=== PATIENT | male | born 1960 | race Caucasian/White ===

== ENCOUNTER 2018-04-23 10:59 | Inpatient (IN) | payer BC ==
[2018-04-23 12:16] LABS: Absolute Lymphocytes (CBC) 0.2 K/uL (0.7-4.9); Absolute Monocytes 0.3 K/uL (0.1-1.3); Absolute Neutrophil 2.9 K/uL (1.8-8.0); Basophils % 0.5 % (0-1.3); Eosinophils % 0.2 % (0-4.4); Hematocrit 20.9 % (39.6-49.0); Lymphocytes % 6.9 % (15.3-44.8); MCH 31.5 pg (27.0-35.0); MCV 91.7 fL (80-100); MPV 8.4 fL (7.6-11.3); Monocytes % 9.1 % (3.3-12.3); RBC Red Blood Cell Count 2.28 M/uL (4.33-5.43)
--- NOTE | 2018-04-23 12:27 | RAD REPORT ---
EXAM DESCRIPTION: CT - Head Brain Wo Cont - 04/23/2018 12:14 pm CLINICAL HISTORY: Syncope, history of head and neck cancer COMPARISON: None. TECHNIQUE: Axial 5 mm thick images of the head were obtained without IV contrast. All CT scans are performed using dose optimization technique as appropriate and may include automated exposure control or mA/KV adjustment according to patient size. FINDINGS: No intracranial hemorrhage, mass, edema or shift of mid-line structures. No acute infarcti on changes seen. No abnormal extra-axial fluid collections. Ventricles are normal. Mastoid air cells and visualized portions of the paranasal sinuses are clear. No acute bony findings. IMPRESSION: Negative non-contrast CT head examination.
[2018-04-23 12:31] LABS: Potassium 3.4 mmol/L (3.5-5.1)
--- NOTE | 2018-04-23 12:56 | RAD REPORT ---
EXAM DESCRIPTION: Josh Single View04/23/2018 12:38 pm CLINICAL HISTORY: Seizure COMPARISON: none FINDINGS: The lungs appear clear of acute infiltrate. The heart is normal size IMPRESSION: No acute abnormalities displayed
--- NOTE | 2018-04-23 14:26 | EDPHYS ---
Physician Documentation [facility] Name: Glenis Mix Age: 57 yrs Sex: Male : 1960 Arrival Date: 04/23/2018 Time: 11:04 Bed 28 Private MD: ED Physician Filiberto Masterson HPI: 04/23 17:46 This 57 yrs old Male presents to ER via EMS with complaints of syncope. gs 17:50 The patient has experienced syncope, became unresponsive, collapsed. Onset: The gs symptoms/episode began/occurred acutely, just prior to arrival. Duration: This was a single episode, that lasted 1 minute(s). Context: the episode(s) was witnessed, by a significant other, occurred at home, occurred while the patient was standing, walking. Associated injury: The patient did not suffer any apparent associated injury. Associated signs and symptoms: Pertinent positives: palpitation,lightheadness prodrome, Pertinent negatives: chest pain. Current symptoms: Currently, the patient is not experiencing any symptoms. The patient has experienced similar episodes in the past, a few times. Historical: - Allergies: 11:09 Iodine; sg - Home Meds: 11:09 Ativan Oral [Active]; Hydrocodone-Acetaminophen Oral [Active]; Fentanyl Patch Topical sg [Active]; - PMHx: 11:09 Anxiety; Esophageal Cancer; sg - Immunization history:: Adult Immunizations up to date. - Social history:: Smoking status: Patient/guardian denies using tobacco, the patient reports quitting approximately 5 years ago. - Ebola Screening: : Patient negative for fever greater than or equal to 101.5 degrees Fahrenheit, and additional compatible Ebola Virus Disease symptoms Patient denies exposure to infectious person Patient denies travel to an Ebola-affected area in the 21 days before illness onset No symptoms or risks identified at this time. ROS: 17:50 All other systems are negative. gs Exam: 17:50 Head/Face: Normocephalic, atraumatic. Eyes: Pupils equal round and reactive to light, gs extra-ocular motions intact. Lids and lashes normal. Conjunctiva and sclera are non-icteric and not injected. Cornea within normal limits. Periorbital areas with no swelling, redness, or edema. ENT: Nares patent. No nasal discharge, no septal abnormalities noted. Tympanic membranes are normal and external auditory canals are clear. Oropharynx with no redness, swelling, or masses, exudates, or evidence of obstruction, uvula midline. Mucous membranes moist. Neck: Trachea midline, no thyromegaly or masses palpated, and no cervical lymphadenopathy. Supple, full range of motion without nuchal rigidity, or vertebral point tenderness. No Meningismus. Chest/axilla: Normal chest wall appearance and motion. Nontender with no deformity. No lesions are appreciated. Cardiovascular: Regular rate and rhythm with a normal S1 and S2. No gallops, murmurs, or rubs. Normal PMI, no JVD. No pulse deficits. Respiratory: Lungs have equal breath sounds bilaterally, clear to auscultation and percussion. No rales, rhonchi or wheezes noted. No increased work of breathing, no retractions or nasal flaring. Abdomen/GI: Soft, non-tender, with normal bowel sounds. No distension or tympany. No guarding or rebound. No evidence of tenderness throughout. Back: No spinal tenderness. No costovertebral tenderness. Full range of motion. MS/ Extremity: Pulses equal, no cyanosis. Neurovascular intact. Full, normal range of motion. Neuro: Awake and alert, GCS 15, oriented to person, place, time, and situation. Cranial nerves II-XII grossly intact. Motor strength 5/5 in all extremities. Sensory grossly intact. Cerebellar exam normal. Normal gait. 17:50 Skin: Appearance: Color: pale. 17:56 ECG was reviewed by the Attending Physician. Vital Signs: 11:10 BP 108 / 54; Pulse 75; Resp 17 S; Temp 98.6; Pulse Ox 100% on R/A; Weight 74.84 kg; iw Height 5 ft. 10 in. (177.80 cm); Pain 4/10; 13:25 BP 100 / 66; Pulse 75; Resp 16; Pulse Ox 100% on R/A; Pain 0/10; iw 16:27 Pulse 76; Resp 18; Pulse Ox 100% on R/A; Pain 0/10; mg2 17:40 BP 120 / 78; Pulse 85; Resp 18; Temp 98.4; Pulse Ox 100% ; Pain 0/10; mg2 18:00 BP 124 / 79; Pulse 80; Resp 18; Pulse Ox 100% on R/A; Pain 0/10; mg2 11:10 Body Mass Index 23.67 (74.84 kg, 177.80 cm) iw 18:00 1800 mg2 [place] Coma Score: 16:57 Eye Response: spontaneous(4). Verbal Response: oriented(5). Motor Response: obeys mg2 commands(6). Total: 15. MDM: 11:34 Patient medically screened. gs 17:50 Differential Diagnosis: cardiac arrhythmia, cerebrovascular accident, seizure. Data gs reviewed: vital signs, nurses notes. Counseling: I had a detailed discussion with the patient and/or guardian regarding: the historical points, exam findings, and any diagnostic results supporting the discharge/admit diagnosis, the need for further work-up and treatment in the hospital. Response to treatment: the patient's symptoms have markedly improved after treatment. Physician consultation: A Carrie GILL and will see patient in inpatient room, also spoke with dr vance says leuk poor sufficient for transfusion. 04/23 11:48 Order name: Basic Metabolic Panel; Complete Time: 12:43 04/23 11:48 Order name: CBC with Diff; Complete Time: 12:43 04/23 11:48 Order name: Magnesium; Complete Time: 12:43 04/23 11:48 Order name: Troponin (emerg Dept Use Only); Complete Time: 12:43 04/23 14:14 Order name: Type And Screen 04/23 14:37 Order name: Bb Add On bd 04/23 14:40 Order name: Urine Dipstick--Ancillary (enter results) 04/23 14:44 Order name: Bb Add On bd 04/23 14:45 Order name: Basic Metabolic Panel EDPR 04/23 14:45 Order name: Basic Metabolic Panel [facility] 04/23 14:45 Order name: CBC with Automated Diff EDPR 04/23 14:45 Order name: CBC with Automated Diff EDPR 04/23 16:32 Order name: ABO/RH no charge EDPR 04/23 16:53 Order name: Glucose, Ancillary Testing EDPR 04/23 11:48 Order name: XRAY Chest (1 view); Complete Time: 13:02 04/23 11:48 Order name: EKG; Complete Time: 11:49 04/23 11:48 Order name: Cardiac monitoring; Complete Time: 12:00 04/23 11:48 Order name: EKG - Nurse/Tech; Complete Time: 12:00 04/23 11:48 Order name: IV Saline Lock; Complete Time: 12:00 04/23 11:48 Order name: Labs collected and sent; Complete Time: 12:00 04/23 11:48 Order name: O2 Per Protocol; Complete Time: 12:00 04/23 11:48 Order name: O2 Sat Monitoring; Complete Time: 12:00 04/23 11:48 Order name: Urine Dipstick-Ancillary (obtain specimen); Complete Time: 14:33 04/23 11:48 Order name: CT Head Brain wo Cont; Complete Time: 12:43 04/23 14:45 Order name: Heart Healthy EDPR EC:56 Rate is 78 beats/min. Rhythm is regular. MS interval is normal. QRS interval is normal. gs No Q waves. No ST changes noted. Clinical impression: Normal ECG. Interpreted by me. Administered Medications: 11:15 Drug: NS 0.9% 1000 ml Route: IV; Rate: 1 bolus; Site: right antecubital; iw 12:30 Follow up: Response: No adverse reaction; IV Status: Completed infusion mg2 Point of Care Testing: Blood Glucose: 11:14 Blood Glucose: 110 mg/dL; iw Ranges: Critical Glucose Levels:Adult <50 mg/dl or >400 mg/dl <40 mg/dl or >180 mg/dl Disposition: 04/23/18 14:25 Hospitalization ordered by Huyen Butler for Observation. Preliminary diagnosis are Syncope and collapse, Anemia in chronic diseases classified elsewhere. - Bed requested for Telemetry/MedSurg (observation). - Status is Observation. mg2 - Condition is Stable. - Problem is new. - Symptoms have improved. UTI on Admission? No Signatures: Dispatcher [employer] [facility] Lauri James RN RN Lisset Pitts RN RN Filiberto Masterson MD MD Ryan Robertson RN RN mg2 Corrections: (The following items were deleted from the chart) 16:45 14:25 Hospitalization Ordered by Jose Villatoro DO for Observation. Preliminary diagnosis is Syncope and collapse; Anemia in chronic diseases classified elsewhere. Bed requested for Telemetry/MedSurg (observation). Status is Observation. Condition is Stable. Problem is new. Symptoms have improved. UTI on Admission? No. gs 17:33 16:45 04/23/2018 14:25 Hospitalization Ordered by Jose Villatoro DO for Observation. gs Preliminary diagnosis is Syncope and collapse; Anemia in chronic diseases classified elsewhere. Bed requested for Telemetry/MedSurg (observation). Status is Observation. Condition is Stable. Problem is new. Symptoms have improved. UTI on Admission? No. iw 18:24 17:33 04/23/2018 14:25 Hospitalization Ordered by Huyen Butler MD for Observation. mg2 Preliminary diagnosis is Syncope and collapse; Anemia in chronic diseases classified elsewhere. Bed requested for Telemetry/MedSurg (observation). Status is Observation. Condition is Stable. Problem is new. Symptoms have improved. UTI on Admission? No. gs
--- NOTE | 2018-04-23 14:26 | ER ---
Nurse's Notes [facility] Name: Glenis Mix Age: 57 yrs Sex: Male : 1960 Arrival Date: 04/23/2018 Time: 11:04 Bed 28 Private MD: Diagnosis: Syncope and collapse;Anemia in chronic diseases classified elsewhere Presentation: 04/23 11:05 Presenting complaint: EMS states: pt being treated for throat cancer/tongue cancer, sg last chemo tx was last week, pt reports having been tired of sitting inside, went outside to mow the yard and felt weak and his heart racing, went inside where he thinks he passed out or had a seizure. Reported hx of seizures and anxiety but not treated medically for them, does have a prescription for Ativan for anxiety though. Neg orthostatics, reports being normal hypotensive, BP's 90's/50's, IV established and NS bolus 1000. Transition of care: patient was not received from another setting of care. Onset of symptoms was April 23, 2018. Risk Assessment: Do you want to hurt yourself or someone else? Patient reports no desire to harm self or others. Initial Sepsis Screen: Does the patient meet any 2 criteria? No. Patient's initial sepsis screen is negative. Does the patient have a suspected source of infection? No. Patient's initial sepsis screen is negative. Care prior to arrival: None. 11:05 Method Of Arrival: EMS: [facility] 11:05 Acuity: TASNEEM 3 sg Historical: - Allergies: 11:09 Iodine; sg - Home Meds: 11:09 Ativan Oral [Active]; Hydrocodone-Acetaminophen Oral [Active]; Fentanyl Patch Topical sg [Active]; - PMHx: 11:09 Anxiety; Esophageal Cancer; sg - Immunization history:: Adult Immunizations up to date. - Social history:: Smoking status: Patient/guardian denies using tobacco, the patient reports quitting approximately 5 years ago. - Ebola Screening: : Patient negative for fever greater than or equal to 101.5 degrees Fahrenheit, and additional compatible Ebola Virus Disease symptoms Patient denies exposure to infectious person Patient denies travel to an Ebola-affected area in the 21 days before illness onset No symptoms or risks identified at this time. Screenin:17 Abuse screen: Denies threats or abuse. Denies injuries from another. Nutritional iw screening: No deficits noted. Tuberculosis screening: No symptoms or risk factors identified. Fall Risk IV access (20 points). Assessment: 11:15 General: Appears in no apparent distress. Behavior is calm, cooperative. Pain: iw Complains of pain in throat. Neuro: Level of Consciousness is awake, alert, obeys commands, Oriented to person, place, time, situation, Moves all extremities. Full function. Neuro: Reports weakness Denies dizziness. Cardiovascular: Capillary refill < 3 seconds in bilateral fingers Patient's skin is warm and dry. Respiratory: Respiratory effort is even, unlabored, Respiratory pattern is regular, symmetrical. GI: Abdomen is non-distended. Derm: Skin is intact, Skin is pale. Musculoskeletal: Range of motion: intact in all extremities. 13:25 Reassessment: Patient appears in no apparent distress at this time. Patient and/or iw family updated on plan of care and expected duration. Pain level reassessed. Patient is alert, oriented x 3, equal unlabored respirations, skin warm/dry/pink. 14:05 Reassessment: Patient appears in no apparent distress at this time. Patient and/or iw family updated on plan of care and expected duration. Pain level reassessed. Patient is alert, oriented x 3, equal unlabored respirations, skin warm/dry/pink. 16:28 Reassessment: Patient appears in no apparent distress at this time. Patient and/or mg2 family updated on plan of care and expected duration. Pain level reassessed. Patient is alert, oriented x 3, equal unlabored respirations, skin warm/dry/pink. blood transfusion consent signed by the patient. 17:30 Reassessment: Patient appears in no apparent distress at this time. Patient and/or mg2 family updated on plan of care and expected duration. Pain level reassessed. Patient is alert, oriented x 3, equal unlabored respirations, skin warm/dry/pink. 18:27 Reassessment: Patient appears in no apparent distress at this time. Patient and/or mg2 family updated on plan of care and expected duration. Pain level reassessed. Patient is alert, oriented x 3, equal unlabored respirations, skin warm/dry/pink. admitted to 2nd floor with ongoing blood transfusion. no reactions noted in ed. Vital Signs: 11:10 BP 108 / 54; Pulse 75; Resp 17 S; Temp 98.6; Pulse Ox 100% on R/A; Weight 74.84 kg; iw Height 5 ft. 10 in. (177.80 cm); Pain 4/10; 13:25 BP 100 / 66; Pulse 75; Resp 16; Pulse Ox 100% on R/A; Pain 0/10; iw 16:27 Pulse 76; Resp 18; Pulse Ox 100% on R/A; Pain 0/10; mg2 17:40 BP 120 / 78; Pulse 85; Resp 18; Temp 98.4; Pulse Ox 100% ; Pain 0/10; mg2 18:00 BP 124 / 79; Pulse 80; Resp 18; Pulse Ox 100% on R/A; Pain 0/10; mg2 11:10 Body Mass Index 23.67 (74.84 kg, 177.80 cm) iw 18:00 1800 mg2 Antonio Coma Score: 16:57 Eye Response: spontaneous(4). Verbal Response: oriented(5). Motor Response: obeys mg2 commands(6). Total: 15. ED Course: 11:04 Patient arrived in ED. sg 11:08 Triage completed. sg 11:10 Arm band placed on. sg 11:14 Lisset Pitts, RN is Primary Nurse. iw 11:17 Filiberto Masterson MD is Attending Physician. gs 11:17 Maintain EMS IV. Dressing intact. Good blood return noted. Site clean \T\ dry. Gauge \T\ iw site: 20 RAC. 11:39 EKG done, by remote sensing technician. reviewed by Filiberto Masterson MD. at1 12:[address] via stretcher. sw 12:13 CT completed. Patient tolerated procedure well. Patient moved back from CT. sw 12:15 CT Head Brain wo Cont In Process Unspecified. EDMS 12:37 X-ray completed. Portable x-ray completed in exam room. Patient tolerated procedure ml well. 12:38 XRAY Chest (1 view) In Process Unspecified. EDMS 13:25 Patient has correct armband on for positive identification. Bed in low position. Call iw light in reach. Side rails up X2. Adult w/ patient. Seizure precautions initiated. residential monitor on. Pulse ox on. 14:25 Jose Villatoro DO is Hospitalizing Provider. gs 16:57 No provider procedures requiring assistance completed. Patient admitted, IV remains in mg2 place. 17:33 Hospitalizing Provider role handed off by Jose Villatoro DO 17:33 Huyen Butler MD is Hospitalizing Provider. Administered Medications: 11:15 Drug: NS 0.9% 1000 ml Route: IV; Rate: 1 bolus; Site: right antecubital; iw 12:30 Follow up: Response: No adverse reaction; IV Status: Completed infusion mg2 Point of Care Testing: Blood Glucose: 11:14 Blood Glucose: 110 mg/dL; iw Ranges: Outcome: 14:25 Decision to Hospitalize by Provider. gs 18:24 Patient left the ED. mg2 18:26 Admitted to Med/surg accompanied by nurse, accompanied by tech, via stretcher, room mg2 202, with chart, Report called to PEYTON Talley 18:26 Condition: stable 18:26 Instructed on the need for admit, Demonstrated understanding of instructions. Signatures: Dispatcher [employer] EDMS Lauri James, RN RN sg Lisset Pitts RN RN iw Stella Gutierrez Amanda, document review specialist EKG Tat1 Mary Fischer Gregory, MD MD Ryan Robertson RN RN mg2 Corrections: (The following items were deleted from the chart) 11:15 11:10 Pulse 75bpm; Resp 17bpm; Spontaneous; Pulse Ox 100% RA; sg iw
[2018-04-23] MEDS ORDERED: ACETAMINOPHEN 500 MG TAB PO PRN (14:43)
[2018-04-23 14:56] LABS: Urine Blood NEGATIVE (NEG); Urine Glucose NEGATIVE (NEG); Urine Protein NEGATIVE (NEG)
--- NOTE | 2018-04-23 15:46 | EKG ---
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
[2018-04-23] MEDS ORDERED: NA CHLORIDE 0.9% 500 ML ONE (16:55)
[2018-04-23] MEDS ORDERED: NA CHLORIDE 0.9% 250 ML ONE (21:23)
[2018-04-23] MEDS: NA CHLORIDE 0.9% 1,000 ML IV SCH (23:41)
[2018-04-24 00:20] VITALS: BMI 22.8
[2018-04-24] MEDS: NA CHLORIDE 0.9% 1,000 ML IV SCH (00:29)
[2018-04-24 03:33] LABS: Absolute Lymphocytes (CBC) 0.6 K/uL (0.7-4.9); Absolute Monocytes 0.6 K/uL (0.1-1.3); Absolute Neutrophil 2.7 K/uL (1.8-8.0); Basophils % 0.6 % (0-1.3); Eosinophils % 1.1 % (0-4.4); Hematocrit 25.7 % (39.6-49.0); Lymphocytes % 15.6 % (15.3-44.8); MCH 31.7 pg (27.0-35.0); MCV 91.2 fL (80-100); MPV 7.6 fL (7.6-11.3); Monocytes % 15.6 % (3.3-12.3); RBC Red Blood Cell Count 2.81 M/uL (4.33-5.43)
[2018-04-24 03:55] LABS: Potassium 4.2 mmol/L (3.5-5.1)
[2018-04-24 04:28] LABS: Basophilic Stippling 1+; Blood Morphology Comment NOTED (NOT SEEN); Platelet Estimate ADEQ
[2018-04-24 04:36] VITALS: BP 108/61; TEMP 97.9
[2018-04-24 04:49] VITALS: O2SAT 99
--- NOTE | 2018-04-24 06:06 | HP ---
Date of Admission: 04/23/2018 Chief Complaint: Feeling weak and fainting spell. History Of Present Illness: A 57-year-old male patient who is undergoing chemotherapy at [facility] , was doing fine in his usual state of health until today when he was feeling a little anxious, so he decided to get out of the house and work in his yard, and as he was pushing his lawnmower, all of a sudden he started to feel very weak. He felt like he was going to faint, so his stop working, went i nside the room, and as he went in the bedroom, he actually passed out in his bed. His came in a nd decided to bring him to the hospital. The patient denies any vomiting, diarrhea, or bleeding. No injury. He did not fall on the floor. After he came into ER, he was evaluated, and he was noted to have significant anemia problem and ER physician talked to his oncologist at [facility] who has sug gested for the patient to be admitted to our hospital for blood transfusion. Medications List: At home he takes lorazepam and hydrocodone and multivitamin. Allergies: TO IODINE. Review of Systems: Constitutional: As mentioned above. Cardiovascular: As mentioned above. All other systems reviewed and negative. Past Medical History: Significant for cancer of base of tongue. Past Surgical History: Significant for right shoulder surgery and surgery for Dupuytren's contractur e. Family History: Mother had stroke. Social History: Negative for smoking or alcohol use. Physical Examination: Vital Signs: Last temperature this evening 99.1, pulse 64, respiratory rate 18, blood pressure 123/7 0. General: Awake, alert, oriented, not in distress. HEENT: Head atraumatic, normocephalic. Conjunctivae nonerythematous. Sclerae white. Mouth, no thr ush or edema noted. Ears/Nose, no mass, lesion, discharge noted. Neck: Supple. No JVD, lymph nodes, bruit, thyromegaly noted. Lungs: Bilateral good equal air entry. Clear to auscultation. No rhonchi. No rales. Heart: Normal heart sounds, no murmur or gallop. Abdomen: Soft, bowel sounds normal. No guarding, rigidity, tenderness, mass, hepatosplenomegaly, dis tention, or bruit noted. Extremities: No leg edema. No calf tenderness. Skin: No rash, ulcer, cellulitis. Lymphatics: No lymph node enlargement in neck, supraclavicular, infraclavicular region. Neuro: No focal neurological deficit. Chest: Unremarkable. External Genitalia: Deferred. Rectal: Deferred. Laboratory Data: White count 3.5, hemoglobin 7.2, platelets 167. Sodium 139, potassium 3.4, chlorid e 105, bicarb 26, BUN 21, creatinine 1.20, glucose 125. Troponin less than 0.02. Urinalysis negativ e. CAT scan of the head was negative for any acute intracranial changes. Chest x-ray, no acute abno rmality detected. Electrocardiogram; normal sinus rhythm, normal EKG. Impression: 1.Syncope. 2.Anemia, symptomatic. 3.Hypokalemia. 4.Cancer of the base of tongue. Plan: Admit the patient to hospital for further evaluation and management of this problem. The elizabeth ent is appropriate for inpatient and is expected to spend 2 midnights in the hospital. We will go ah ead and give him 2 units of packed red cell blood transfusion. We will repeat blood work tomorrow af ter blood transfusion is completed. I will see him tomorrow for followup. The patient was advised t o move his extremities to reduce chances of DVT and we will go ahead and apply SCD for DVT prophylaxis. Details and plan of treatment discussed with him. LIDIA/LIZZIE Voice ID: [id number]
--- NOTE | 2018-04-25 18:01 | DS ---
Date of Discharge: 04/24/2018 Disposition: Discharged to go home. Laboratory Data: White count this morning for hemoglobin 8.9, platelets 147. Sodium was 140, potass ium 4.2, chloride 108, bicarb 26, BUN 22, creatinine 1.20, glucose 85. Physical Examination: HEENT: Unremarkable. Lungs: Clear to auscultation. Heart: Sounds normal. Abdomen: Soft. Bowel sounds normal. No guarding, rigidity, tenderness, distention. Extremities: No leg edema. Hospital Course: A 57-year-old male patient, who is undergoing chemotherapy at [facility] for faisal r. Please see dictated H and P for more information. Yesterday, the patient came into the hospital. His hemoglobin was 7.2. He was admitted to the hospital and 2 units of packed red cell blood trans fusion was given. He does not have any signs and symptoms of any GI blood loss. He has appointment to see his oncologist this week on at [facility] and he will keep their appointment. His c ondition has remained stable and he was discharged to go home in stable condition with discharge medi cations and instructions. Final Diagnoses: 1.Anemia. 2.Thrombocytopenia. LIDIA/MODL Voice ID: [id number] Report ID: [id number]
== END 2018-04-24 08:43 | disposition home or self-care (01) | DRG 148 ==
LOC: ER 10:59 → ERHOLD 14:43 → 2ND 17:55
PROVIDERS: ADMIT Internal Medicine; ATTEND Internal Medicine
PROC: 30233N1 Transfusion of Nonautologous Red Blood Cells into Peripheral Vein, Percutaneous Approach (ICD-10-PCS; principal; 2018-04-23)
DX: C01 Malignant neoplasm of base of tongue (principal); D63.0 Anemia in neoplastic disease; R55 Syncope and collapse; D69.6 Thrombocytopenia, unspecified; Z87.891 Personal history of nicotine dependence; E87.6 Hypokalemia
CPT/HCPCS: 36415; 70450; 71045; 80048; 81003; 82962; 83735; 84484; 85025; 86850; 86900; 86901; 93005; 96360; 99285; J7030; P9016